=== PATIENT | female | born 1985 | race American Indian/Alaskan Native ===

== ENCOUNTER 2022-05-26 14:07 | Emergency (ER) | payer SELFPAY ==
[2022-05-26 14:47] VITALS: BP 148/90
[2022-05-26] MEDS ORDERED: CYCLOBENZAPRINE 10 MG TAB PO ONE (21:10)
[2022-05-26] MEDS ORDERED: KETOROLAC 30 MG/1 ML INJ IM ONE (21:10)
[2022-05-26] MEDS ORDERED: dexAMETHasone 20 MG/5 ML VIAL IM ONE (21:10)
--- NOTE | 2022-05-26 21:23 | Emergency Department Report ---
ED General Adult HPI - General Chief complaint: Extremity Problem,Nontraumatic Stated complaint: LEFT LEG AND BACK PAIN Time Seen by Provider: 05/26/22 20:46 Source: patient Mode of arrival: Ambulatory Limitations: No Limitations - History of Present Illness Initial comments: Patient 36-year-old female with history of obesity. Patient complains of low b ack pain radiating to left lower extremity. Symptoms for the past 5 days. Symptoms described as burning stinging and intermittently sharp. Symptoms are exacerbated by bending reaching and twisting. Patient cannot recall injury event however. Patient works as a MANAGER [employer]. There is been no fevers no chills no dizziness no lightheadedness no chest pain no nausea or vomiting. Patient denies loss or decrease in bowel or bladder function. Patient drove self to ED today. Patient is amatory with minimal limp. There are no relieving factors. - Related Data Previous Rx's Medication Instructions Recorded Last Taken Type Acetaminophen/Codeine [Tylenol 1 tab PO Q8H PRN #9 tab 05/26/22 Unknown Rx /Codeine # 3 tab] Cyclobenzaprine [Flexeril] 10 mg PO TID PRN #30 tab 05/26/22 Unknown Rx Naproxen Sodium [Naproxen Sodium 550 mg PO BID PRN #30 tab 05/26/22 Unknown Rx 550mg] Allergies Allergy/AdvReac Type Severity Reaction Status Date / Time No Known Allergies Allergy Verified 05/26/22 14:44 ED Review of Systems ROS: Stated complaint: LEFT LEG AND BACK PAIN Other details as noted in HPI Constitutional: denies: chills, fever Eyes: denies: eye pain, eye discharge, vision change ENT: denies: ear pain, throat pain Respiratory: denies: cough, shortness of breath, wheezing Cardiovascular: denies: chest pain, palpitations Endocrine: no symptoms reported Gastrointestinal: denies: abdominal pain, nausea, diarrhea Genitourinary: denies: urgency, dysuria, discharge Musculoskeletal: back pain Skin: denies: rash, lesions Neurological: denies: headache, weakness, paresthesias Psychiatric: denies: anxiety, depression Hematological/Lymphatic: denies: easy bleeding, easy bruising ED Past Medical Hx - Medications Home Medications: Home Medications Medication Instructions Recorded Confirmed Last Taken Type Acetaminophen/Codeine [Tylenol 1 tab PO Q8H PRN #9 tab 05/26/22 Unknown Rx /Codeine # 3 tab] Cyclobenzaprine [Flexeril] 10 mg PO TID PRN #30 tab 05/26/22 Unknown Rx Naproxen Sodium [Naproxen Sodium 550 mg PO BID PRN #30 tab 05/26/22 Unknown Rx 550mg] ED Physical Exam - General Limitations: No Limitations General appearance: alert, in no apparent distress - Head Head exam: Present: normocephalic, normal inspection - Eye Eye exam: Present: EOMI Pupils: Present: normal accommodation - ENT ENT exam: Present: mucous membranes moist - Neck Neck exam: Present: normal inspection, full ROM. Absent: tenderness - Respiratory Respiratory exam: Present: normal lung sounds bilaterally. Absent: respiratory distress, wheezes, stridor - Cardiovascular Cardiovascular Exam: Present: regular rate, normal rhythm, normal heart sounds. Absent: systolic murmur, diastolic murmur, rubs, gallop - GI/Abdominal GI/Abdominal exam: Present: soft, normal bowel sounds. Absent: distended, tenderness - Rectal Rectal exam: Present: deferred - Extremities Exam Extremities exam: Present: normal inspection, full ROM, normal capillary refill. Absent: pedal edema - Back Exam Back exam: Present: full ROM, muscle spasm, paraspinal tenderness (Left lateral paraspinous muscle tenderness to deep palpation. Sciatic notch is tender to deep palpation.). Absent: CVA tenderness (R), CVA tenderness (L) - Expanded Back Exam Expanded Back exam: Absent: saddle anesthesia Back exam: Sciatic Notch Tenderness: Left, Positive Straight Leg Raise: Left (Strength remains 5 5 flexion and extension.), Negative Straight Leg Raising: Right - Neurological Exam Neurological exam: Present: alert, oriented X3, CN II-XII intact, reflexes normal. Absent: motor sensory deficit - Expanded Neurological Exam Expanded Patient oriented to: Present: person, place, time Motor strength exam: RUE: 5, LUE: 5, RLE: 5, LLE: 5 DTR: knee (R): 1+, knee (L): 1+ Best Eye Response ([place]): (4) open spontaneously Best Motor Response ([place]): (6) obeys commands Best Verbal Response ([place]): (5) oriented [place] Total: 15 - Psychiatric Psychiatric exam: Present: normal affect - Skin Skin exam: Present: warm, dry, intact, normal color. Absent: rash ED Course Vital Signs 05/26/22 14:45 Temperature 98.4 F Pulse Rate 104 H Respiratory 16 Rate Blood Pressure 148/90 [Left] O2 Sat by Pulse 97 Oximetry ED Medical Decision Making - Medical Decision Making Patient 36-year-old female with history of obesity. Patient complains of low back pain radiating to left lower extremity. Symptoms for the past 5 days. Symptoms described as burning stinging and intermittently sharp. Symptoms are exacerbated by bending reaching and twisting. Patient cannot recall injury event however. Patient works as a MANAGER [employer]. There is been no fevers no chills no dizziness no lightheadedness no chest pain no nausea or vomiting. Patient denies loss or decrease in bowel or bladder function. Patient drove self to ED today. Patient is amatory with minimal limp. There are no relieving factors. There is no dysuria frequency urgency or hematuria. Pain is improved with medications given in ED. Patient remains amatory with steady gait. Patient with no acute distress at this time. Plan will DC to home with prescriptions. Back exercises, moist heat therapy. Follow-up with your doctor in 2 to 3 days. Return to emergency department should symptoms worsen. Patient verbalized agreement and understanding with discharge plan. Patient will be DC'd home in stable condition at this time. Critical care attestation.: If time is entered above; I have spent that time in minutes in the direct care of this critically ill patient, excluding procedure time. ED Disposition Clinical Impression: Lumbar strain Qualifiers: Encounter type: initial encounter Qualified Code(s): S39.012A - Strain of muscle, fascia and tendon of lower back, initial encounter Disposition: HOME / SELF CARE / HOMELESS Is pt being admited?: No Does the pt Need Aspirin: No Condition: Stable Instructions: Low Back Sprain or Strain Rehab-SportsMed Additional Instructions: Take medications as prescribed, use moist heat therapy as directed. Back exercises as directed. Follow-up with your doctor in 2 to 3 days. Return to emergency department should symptoms worsen. Prescriptions: Cyclobenzaprine [Flexeril] 10 mg PO TID PRN #30 tab PRN Reason: Muscle Spasm Naproxen Sodium [Naproxen Sodium 550mg] 550 mg PO BID PRN #30 tab PRN Reason: pain Acetaminophen/Codeine [Tylenol /Codeine # 3 tab] 1 tab PO Q8H PRN #9 tab PRN Reason: severe pain Referrals: JESSE BROWNING MD [Primary Care Provider] - 3-5 Days Forms: Work/School Release Form(ED) Time of Disposition: 21:27
== END 2022-05-26 22:22 | disposition home or self-care (01) ==
LOC: ED 14:07
DX: S39.012A Strain of muscle, fascia and tendon of lower back, initial encounter (principal); X58.XXXA Exposure to other specified factors, initial encounter; Y93.89 Activity, other specified; Y92.89 Other specified places as the place of occurrence of the external cause; Y99.8 Other external cause status
CPT/HCPCS: 96372; 99282; J1100; J1885